=== PATIENT | female | born 1985 | race Caucasian/White ===

== ENCOUNTER → 2016-08-16 | Outpatient (CLI) | payer BC ==
--- NOTE | 2016-08-16 19:09 | Diagnostic Imaging Report ---
EXAMINATION: Bilateral breast digital diagnostic mammogram with CAD. The current study was also evaluated with a Computer Aided Detection (CAD) system. IMPRESSION: Palpable lump in the outer aspect of the right breast. COMPARISON: No prior studies are available for comparison. FINDINGS: The breasts are composed of scattered fibroglandular densities. There is an asymmetry of the lateral periareolar area of the right breast. The left breast demonstrates also an asymmetry in the retroareolar region of the left MLO view. These were evaluated with focal compression views which demonstrate persistent but less prominent asymmetries on focal compression views. These these may relate to summation artifact of parenchyma. The palpable area is marked in the lateral aspect of the right breast with no underlying abnormality seen. IMPRESSION: Bilateral periareolar asymmetries. No definite underlying lesion at the palpable area. Ultrasound correlation pending. ACR BI-RADS Category 0: Incomplete. (Needs additional imaging evaluation). Result letter will be mailed to the patient. Note: At least 10% of breast cancer is not imaged by mammography. Dictated by: Dictated on workstation # [id number]
--- NOTE | 2016-08-16 19:11 | Diagnostic Imaging Report ---
EXAMINATION: Bilateral breast ultrasound. INDICATION: Lateral right breast lump. FINDINGS: The four quadrants and retroareolar region of each breast were scanned with no underlying abnormality seen. IMPRESSION: Negative study. Clinical followup of the lump is recommended. The asymmetries seen on mammography are likely related to summation effect of parenchyma. ACR BI-RADS Category 1: Negative. Result letter will be mailed to the patient. Note: At least 10% of breast cancer is not imaged by mammography. Dictated by: Dictated on workstation # [id number]
== END ==
LOC: RAD 07:54
PROVIDERS: ATTEND Obstetrics & Gynecology
DX: N63 Unspecified lump in breast (principal)
CPT/HCPCS: 77066

== ENCOUNTER → 2020-09-30 | Outpatient (CLI) | payer BC ==
--- NOTE | 2020-10-02 18:51 | Diagnostic Imaging Report ---
INDICATION: Screening. At this time there are no current complaints. EXAMINATION: Digital mammogram bilateral screening with CAD. 3D tomographic images were obtained and reviewed. The current study was also evaluated with a Computer Aided Detection (CAD) system. COMPARISON: This study was compared to the prior exam of 08/16/2016. The current study was also evaluated with a Computer Aided Detection (CAD) system. FINDINGS: There are scattered fibroglandular densities in both breasts which could obscure a lesion. Overall, there does not appear to have been any significant change when compared to the prior exam. No primary or secondary sign of malignancy is noted. IMPRESSION: There is no radiographic evidence for malignancy. ACR BI-RADS Category 1: Negative. Result letter will be mailed to the patient. Note: At least 10% of breast cancer is not imaged by mammography. Dictated by: Dictated on workstation # [id number]
== END ==
LOC: RAD 12:23
PROVIDERS: ATTEND Obstetrics & Gynecology
DX: Z12.31 Encounter for screening mammogram for malignant neoplasm of breast (principal)
CPT/HCPCS: 77063; 77067